=== PATIENT | female | born 1935 | race Caucasian/White ===

== ENCOUNTER 2023-10-27 14:09 | Emergency (ER) | payer MEDICARE, OTHER ==
[2023-10-27] MEDS ORDERED: Ondansetron PF 4 MG/2 ML Vial ONE (14:26)
[2023-10-27 14:31] LABS: #Basophils 0.1 thou/uL (0.0-0.2); #Eosinphils 0.1 thou/uL (0.0-0.7); #Lymphocytes 1.1 thou/uL (1.20-3.40); #Monocytes 0.6 thou/uL (0.11-0.59); #Neutrophils 9.2 thou/uL (1.40-6.50); %Basophils 0.5 % (0.0-1.0); %Eosinophils 0.5 % (0.0-10.0); %Lymphocytes 9.7 % (21.0-51.0); %Monocytes 5.4 % (0.0-10.0); Hematocrit 34.7 % (36.0-47.0); Hemoglobin 11.5 g/dL (12.0-16.0); Mean Corpuscular HGB CONC 33.2 g/dL (32.0-36.0); Mean Corpuscular Hemoglobin 29.6 pg (27.0-31.0); Platelet Count 237 10x3/uL (130-400); RBC Distribution Width 13.4 % (11.5-14.5); White Blood Cell (WBC) Count 10.9 10x3/uL (4.8-10.8)
[2023-10-27 14:44] LABS: Bilirubin Negative (Negative); Blood, Urine Trace (Negative); Clarity Slightly Cloudy (Clear); Glucose, Urine (Dipstick) Negative (Negative); Ketone, Urine Trace mg/dL (Negative); Leukocyte Trace (Negative); Nitrite Negative (Negative); Protein, Urine (Dipstick) 100 mg/dL (Neg-Trace); Specific Gravity, Urine 1.025 (1.005-1.030)
[2023-10-27 14:52] LABS: ALT (SGPT) 12 U/L (8-55); AST (SGOT) 15 U/L (5-34); Albumin 4.1 g/dL (3.4-4.8); Alcohol Less than 10.0 mg/dL (Less than 10); Alkaline Phosphatase 82 U/L (40-110); Anion Gap 19 mmol/L (10-20); BUN (Urea Nitrogen) 25 mg/dL (9.8-20.1); Bilirubin, Total 0.5 mg/dL (0.2-1.2); Calc. Creatinine Clearance 0 mL/min (70-130); Calcium 9.8 mg/dL (7.8-10.44); Carbon Dioxide 22 mmol/L (23-31); Chloride 99 mmol/L (98-107); Estimated GFR 57; Globulin 3.8 g/dL (2.4-3.5); Glucose 152 mg/dL (83-110); Potassium 4.5 mmol/L (3.5-5.1); Protein, Total 7.9 g/dL (5.8-8.1); Sodium 135 mmol/L (136-145)
[2023-10-27 15:03] LABS: Bacteria/HPF 4+ HPF (None Seen); CAUTI Indications for Culture Alt mental st,lethar
[2023-10-27 15:05] LABS: Urine Culture Reflex Yes Yes
[2023-10-27] MEDS ORDERED: cefTRIAXone (ROCEPHIN) 1 GM VIAL ONE (15:47)
[2023-10-27] MEDS ORDERED: Acetaminophen 650 MG Suppository ONE (17:29)
[2023-10-27] MEDS ORDERED: Haloperidol Lactate 5 MG/ML VIAL ONE (17:40)
[2023-10-27 20:01] LABS: Troponin I 4.191 ng/mL (< 0.028)
[2023-10-27] MEDS ORDERED: Enoxaparin 100 MG (1 mL) SYRINGE ONE (20:08)
[2023-10-27] MEDS ORDERED: Aspirin 300 MG Suppository ONE (20:08)
== END 2023-10-27 21:46 | disposition short-term general hospital (02) ==
LOC: BURERS 14:09
DX: N39.0 Urinary tract infection, site not specified (principal); G93.40 Encephalopathy, unspecified; R79.89 Other specified abnormal findings of blood chemistry; I10 Essential (primary) hypertension; E11.9 Type 2 diabetes mellitus without complications; Z79.84 Long term (current) use of oral hypoglycemic drugs; Z79.899 Other long term (current) drug therapy
CPT/HCPCS: 70450; 80053; 80307; 81001; 84484 ×2; 85025; 87077; 87086; 93005; 96365; 96372; 96375; 99285; J0696; J1630; J1650; J2405; 87186